=== PATIENT | male | born 1935 | race Caucasian/White ===

== ENCOUNTER 2020-07-30 08:23 | Outpatient (CLI) | payer MEDICARE, BC, SELFPAY ==
--- NOTE | 2020-07-30 08:35 | US_ITS ---
WS: [id number] RENAL ULTRASOUND HISTORY: STAGE 3 CHRONIC KIDNEY DZ COMPARISON: None available. TECHNIQUE: 2-D and color Doppler imaging of the kidney submitted. Right kidney: 10.3 cm x 3.6 cm x 3.5 cm. Normal size kidney. There is slight increased echogenicity but no hydronephrosis or mass. Left kidney: 9.9 cm x 4.5 cm x 4.9 cm. Mild increased echogenicity. No hydronephrosis or mass. Aorta: Normal. Urinary Bladder: Normal distention. US/US renal BI* [id number] IMPRESSION: Very mild increased echogenicity suggesting early medical renal disease. Otherw ise negative.
== END 2020-07-30 08:24 | disposition home or self-care (01) ==
LOC: RAD 08:28
PROVIDERS: PCP Family Medicine; Visit Provider Internal Medicine Nephrology
DX: N18.32 Chronic kidney disease, stage 3b (principal)
CPT/HCPCS: 76770

== ENCOUNTER 2020-09-20 14:47 | Outpatient (CLI) | payer MEDICARE, BC, SELFPAY ==
--- NOTE | 2020-09-20 15:06 | MR_ITS ---
WS: [id number] MRI CERVICAL SPINE NONCONTRAST HISTORY: CERVICAL SPINE PAIN COMPARISON: 11/05/2017 Technique: Multiplanar, multisequence noncontrast imaging of the cervical spine. Mild increase in the cervical lordosis. C7 anterolisthesis by 3 mm. Disc desiccation is moderate thro ughout the cervical spine. No fractures or marrow edema. Signal within the cervical cord is normal. Visualized posterior fossa is unremarkable. Craniocervical junction, C1 and C2 relationship, odontoid process and soft tissues are normal. C2-C3: Normal. C3-C4: Mild annular disc bulging and osteophytic ridging. Mild central and bilateral foraminal stenos is. C4-C5: Diffuse annular disc bulging with facet arthritis. Disc and osteophyte and facet joint arthrit is encroaching into the central canal causing severe stenosis centrally. Severe bilateral foraminal s tenosis with a larger disc osteophyte complex on the LEFT. C5-C6: Diffuse annular disc bulging and osteophytic ridging with facet arthritis. Moderate size centr al disc protrusion. Severe central and bilateral foraminal stenosis. C6-C7: Diffuse annular disc bulging with osteophytic ridging. Disc osteophyte contributing to severe bilateral foraminal stenosis and mild central stenosis. C7-T1: Mild bilateral foraminal narrowing due to disc osteophyte disease. Very mild central stenosis. Similar findings can continue into the upper thoracic spine were there is mild central and bilateral foraminal stenosis due to disc osteophyte disease. Paraspinal soft tissue are normal. MR/MR cervical spin wo con* [id number] IMPRESSION: 1. Continued mild progression of cervical stenosis and degenerative disease th roughout the cervical spine since 11/05/2017. 2. Severe central and bilateral foraminal stenosis at C4-5 due to disc and ost eophyte disease. 3. Severe central and bilateral foraminal stenosis at C5-6. 4. Severe bilateral foraminal stenosis at C6-7 with mild central stenosis. 5. Mild central and bilateral foraminal stenosis at C3-4 and C7-T1
== END 2020-09-20 14:48 | disposition home or self-care (01) ==
PROVIDERS: PCP Family Medicine; Visit Provider Family Medicine
DX: M50.30 Other cervical disc degeneration, unspecified cervical region (principal); M48.02 Spinal stenosis, cervical region; M48.03 Spinal stenosis, cervicothoracic region
CPT/HCPCS: 72141

== ENCOUNTER 2022-03-24 04:00 | Observation (INO) | payer MEDICARE, BC, SELFPAY ==
[2022-03-24] VITALS (12 sets, daily range): BP systolic 128–176; BP diastolic 66–109; PULSE 70–94; RESP 14–26; TEMP 36.5–36.9; O2SAT 92–97; BMI 25.8; BMI 27.3
--- NOTE | 2022-03-24 04:02 | XRR_ITS ---
PROCEDURE INFORMATION: Exam: XR Abdomen Exam date and time: 03/24/2022 4:10 AM Age: 87 years old Clinical indication: Constipation and nausea and vomiting; Abdominal pain; Generalized; Prior surgery; Surgery type: Lumbar fusion; Patient HX: Abd pain with constipation and n/v. TECHNIQUE: Imaging protocol: Radiologic exam of the abdomen. Views: Frontal supine view of the abdomen. 1 View. COMPARISON: CR XR hip RT 2-3V wo/w pel* [id number] 05/25/2016 2:19 PM FINDINGS: Gastrointestinal tract: There is a nonspecific bowel gas pattern with some mildly gas distended loops of bowel in the mid abdomen. Some gas and fecal material is seen in the colon. There is no pneumatosis or mass effect. There is no organomegaly. Intraperitoneal space: No definite free air on the supine view exam. Bones/joints: There are no acute osseous abnormalities noted. Postsurgical changes are seen status post L2-L3 and L4-L5 fusion with transpedicular screws, rods and disc space graft material. Some bone graft material is seen in the paraspinal regions. Post laminectomy changes are seen at the L3 and L4 levels. Moderate to severe right hip degenerative changes are seen. Soft tissues: No other radiopaque foreign body or abnormal opacity. XR/XR KUB [id number] IMPRESSION: Nonspecific bowel gas pattern, as noted above.
--- NOTE | 2022-03-24 04:13 | W.ED.ABDPA2 ---
Documented by User: Janet Hicks MD 03/27/22 18:52 HPI - Abdominal Pain General: Chief Complaint: Abdominal Pain Stated Complaint: Constipated\Had Diahrea\V Time Seen by Provider: 03/24/22 04:02 Source: patient Mode of arrival: ambulatory Limitations: no limitations History of Present Illness: 87-year-old male who states that over the last week has been having diarrhea and states that his PCP had prescribed him Lomotil which she has been taking for a few days he states he has not had a bowel movement over the last 2 days and felt like his abdomen is getting distended. He states he has now been taking MiraLAX. He states that his bowels are very finicky and he does go from diarrhea to constipation he has abdominal cramping he rates his pain a 3 out of 10 he has had some slight vomiting he states is just mucus no large amount of vomitus no stool in his vomitus no history abdominal surgeries Associated Symptoms: Reports constipation and vomiting; Denies chills, dysuria and fever(s) Review of Systems Const: Denies: fever(s), chills, body aches or change in appetite Eyes: Denies: blurry vision or eye discomfort ENMT: Denies: throat pain or dental pain Card: Denies: chest pain Resp: Denies: dyspnea GI: Reports: abdominal pain, vomiting and constipation : Denies: dysuria Musc: Denies: neck pain or back pain Skin/Breast: Denies: rash Neuro: Denies: headache(s) Psych: Denies: depression Luigi/Lymph: Denies: easy bruising All/Imm: Denies: urticaria PFSH ED PFSH: Medical History BPH (benign prostatic hyperplasia) Chronic kidney disease Coronary artery disease Diabetes mellitus GERD (gastroesophageal reflux disease) Hyperlipidemia Hypertension Surgical History History of back surgery History of hernia surgery History of open heart surgery History of total replacement of both shoulder joints History of total right knee replacement Family History Mother Diabetes Stroke Grandmother Diabetes Denies family history of Cancer Social History Smoking and tobacco status: former smoker Alcohol intake: never Household members: none Marital status: / Current occupational status: retired 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 Physical Exam Const: COMMON NORMALS: no acute distress, patient oriented x3 and healthy appearing HENMT: COMMON NORMALS: normocephalic and atraumatic HEAD & SCALP: normocephalic and atraumatic Eye: COMMON NORMALS: Equal, round and reactive pupils present and EOMs intact bilaterally PUPIL: Yes Equal, round and reactive pupils present Neck/C-Spine: COMMON NORMALS: full ROM and supple Chest: COMMONS NORMALS: normal inspection of the chest and normal palpation of entire chest wall Resp: COMMON NORMALS: normal respiratory effort, No retractions, No use of accessory muscles and clear to auscultation bilaterally AUSCULTATION: clear to auscultation bilaterally Cardio: COMMON NORMALS: regular rate, regular rhythm and No murmurs present (Cardio) RATE: regular rate RHYTHM: regular rhythm GI: COMMON NORMALS: Normal to inspection, nondistended, normoactive bowel sounds present, Soft to palpation, non-tender and no masses PALPATION: Yes Soft to palpation Extremity: COMMON NORMALS: normal to inspection and full ROM Neuro: COMMON NORMALS: patient oriented x3, moves all extremities and no focal motor deficits Psych: COMMON NORMALS: mental status grossly normal, Normal thought process present and cooperative THOUGHT PROCESS: Normal thought process present Skin: COMMON NORMALS: no rashes or lesions noted and no wounds GENERAL SKIN EXAM: no rashes or lesions noted Course Vital Signs: Vital signs: Vital Signs Temperature 97.8 F 03/25/22 15:25 Pulse Rate 77 03/25/22 15:25 Respiratory Rate 16 03/25/22 15:25 Blood Pressure 152/69 03/25/22 16:31 Pulse Oximetry 94 03/25/22 15:25 Oxygen Delivery Me thod 03/25/22 15:25 MDM - Abdominal Pain Lab Data : 03/25/22 04:08 03/25/22 15:37 Labs/Radiology: Radiology Impressions KUB X-Ray 03/24/22 04:02 IMPRESSION: Nonspecific bowel gas pattern, as noted above. Abdomen/Pelvis CT 03/24/22 04:32 IMPRESSION: 1. Fluid in the ascending and transverse colon. Moderately fluid distended cecum with maximal diameter of 6.9 cm. Moderate gas and fecal material seen in the descending colon, sigmoid colon and rectum. These are nonspecific findings that can be seen with enteritis. Some sigmoid colonic diverticula seen, without CT evidence of diverticulitis. 2. Moderately distended gallbladder with gallstones. Sonography may be performed for complete assessment. 3. Small to medium-sized hiatal hernia. 4. Other chronic changes, as noted above. Gallbladder Ultrasound 03/24/22 05:30 IMPRESSION: 1. West-bp-pwfkqcjmkf distended gallbladder with mild gallbladder sludge along with some dependent gallstones. Mild gallbladder wall thickening. No pericholecystic fluid. No sonographic Hardy sign demonstrated. Hepatobiliary scan may be performed, if there is further clinical concern. 2. No biliary ductal dilatation seen. Laboratory Results WBC 24.6 10^3/uL (4.0-10.0) H 03/24/22 04:13 RBC 4.05 10^6/uL (4.1-5.3) L 03/24/22 04:13 Hgb 13.2 g/dL (11.7-16.6) 03/24/22 04:13 Hct 36.9 % (42.0-52.0) L 03/24/22 04:13 MCV 91.1 fl (80-94) 03/24/22 04:13 MCH 32.6 pg (28.0-34.0) 03/24/22 04:13 MCHC 35.8 g/dL (30.0-36.0) 03/24/22 04:13 RDW 13.2 % (12.1-15.1) 03/24/22 04:13 Plt Count 233 10^3/cmm (130-400) 03/24/22 04:13 MPV 9.7 fL (7.4-10.4) 03/24/22 04:13 Neut % (Auto) 82.2 % 03/24/22 04:13 Lymph % (Auto) 8.0 % 03/24/22 04:13 [place] % (Auto) 7.1 % 03/24/22 04:13 Eos % (Auto) 1.4 % 03/24/22 04:13 Baso % (Auto) 0.4 % 03/24/22 04:13 Neut # (Auto) 20.22 10^3/uL (1.8-7.7) H 03/24/22 04:13 Lymph # (Auto) 2.0 10^3/uL (0.8-4.8) 03/24/22 04:13 [place] # (Auto) 1.8 10^3/uL (0.2-0.9) H 03/24/22 04:13 Eos # (Auto) 0.3 10^3/uL (0.0-0.8) 03/24/22 04:13 Baso # (Auto) 0.1 10^3/uL (0.0-0.1) 03/24/22 04:13 Nucleated RBC % (auto) 0 % 03/24/22 04:13 Nucleated RBCs # 0.0 /100WBC 03/24/22 04:13 Sodium 134 mmol/L (136-145) L 03/24/22 04:13 Potassium 3.5 mmol/L (3.5-5.1) 03/24/22 04:13 Chloride 98 mmol/L (98-107) 03/24/22 04:13 Carbon Dioxide 20 mmol/L (22-29) L 03/24/22 04:13 Anion Gap 19.5 (5-19) H 03/24/22 04:13 BUN 52 mg/dL (8-23) H 03/24/22 04:13 Creatinine 2.1 mg/dL (0.7-1.2) H 03/24/22 04:13 GFR Calculation Not Reportable 03/24/22 04:13 Glucose 207 mg/dL (65-115) H 03/24/22 04:13 Calculated Osmolality 298 mOsm/kg (285-295) H 03/24/22 04:13 Lactic Acid 1.9 mmol/L (0.5-2.2) 03/24/22 08:40 Lactate 2.3 mmol/L (0.5-2.2) H 03/24/22 04:39 Calcium 9.0 mg/dL (8.5-10.5) 03/24/22 04:13 Total Bilirubin 0.3 mg/dL (0.15-1.2) 03/24/22 04:13 AST 24 U/L (0-40) 03/24/22 04:13 ALT 24 U/L (0-41) 03/24/22 04:13 Alkaline Phosphatase 96 U/L (40-130) 03/24/22 04:13 Creatine Kinase 230 U/L (39-308) 03/24/22 09:15 Total Protein 7.3 g/dL (6.6-8.7) 03/24/22 04:13 Albumin 4.2 g/dL (3.5-5.2) 03/24/22 04:13 Globulin 3.1 g/dL (1.3-4.6) 03/24/22 04:13 Lipase 64 U/L (13-60) H 03/24/22 04:13 TSH 0.97 uIU/mL (0.27-4.20) 03/24/22 09:15 Urine Color Yellow (Yellow) 03/24/22 06:42 Urine Appearance Clear (CLEAR) 03/24/22 06:42 Urine pH 5 (5-7) 03/24/22 06:42 Ur Specific [place] 1.020 (1.005-1.030) 03/24/22 06:42 Urine Protein Neg (Negative) 03/24/22 06:42 Urine Glucose (UA) Trace (Normal) H 03/24/22 06:42 Urine Ketones Negative (Negative) 03/24/22 06:42 Urine Blood Neg (Negative) 03/24/22 06:42 Urine Nitrate Negative (Negative) 03/24/22 06:42 Urine Bilirubin Neg (Negative) 03/24/22 06:42 Urine Urobilinogen Norm mg/dL (Negative) 03/24/22 06:42 Ur Leukocyte Esterase Negative (Negative) 03/24/22 06:42 Discharge Plan Discharge Patient Disposition: Placed in Observation Admit Provider: Elver Zaman Clinical Impression: Cholelithiasis, Colitis, Diabetic peripheral neuropathy associated with type 2 diabetes mellitus, Leukocytosis Discharge Diet: Advance as tolerated Discharge Activity: Resume usual activity Sign Out Sign Out Data: Patient Sign Out occurred on 03/24/22 at 06:23. Patient's care was discussed, and care was transferred from to Ketan Pierce DO. Coding Level of Care Code ED Public Health Dentist for Chg Fwd Exam Comprehensive Documented by User: Ketan Pierce DO 03/24/22 17:55 HPI - Abdominal Pain General: Chief Complaint: Abdominal Pain Stated Complaint: Constipated\Had Diahrea\V Time Seen by Provider: 03/24/22 04:02 PFSH ED PFSH: Medical History BPH (benign prostatic hyperplasia) Chronic kidney disease Coronary artery disease Diabetes mellitus GERD (gastroesophageal reflux disease) Hyperlipidemia Hypertension Surgical History History of back surgery History of hernia surgery History of open heart surgery History of total replacement of both shoulder joints History of total right knee replacement Family History Mother Diabetes Stroke Grandmother Diabetes Denies family history of Cancer Social History Smoking and tobacco status: former smoker Alcohol intake: never Household members: none Marital status: / Current occupational status: retired 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 Patient has leukocytosis mild gallbladder wall thickening elevated lactate and creatinine. He meets qualifications for sepsis. We will get serial lactates. I did not give him fluids and holding at this point he would benefit from it he is not significantly hypotensive he is actually hypertensive and giving him a large fluid bolus with actually likely make things worse discussed Dr. Zaman also consulted general surgery. Medical Records I reviewed the patient's medical records. Lab Data I reviewed the patient's lab results. : 03/25/22 04:08 03/25/22 15:37 Labs/Radiology: Radiology Impressions KUB X-Ray 03/24/22 04:02 IMPRESSION: Nonspecific bowel gas pattern, as noted above. Abdomen/Pelvis CT 03/24/22 04:32 IMPRESSION: 1. Fluid in the ascending and transverse colon. Moderately fluid distended cecum with maximal diameter of 6.9 cm. Moderate gas and fecal material seen in the descending colon, sigmoid colon and rectum. These are nonspecific findings that can be seen with enteritis. Some sigmoid colonic diverticula seen, without CT evidence of diverticulitis. 2. Moderately distended gallbladder with gallstones. Sonography may be performed for complete assessment. 3. Small to medium-sized hiatal hernia. 4. Other chronic changes, as noted above. Gallbladder Ultrasound 03/24/22 05:30 IMPRESSION: 1. Pmvt-as-qcjaummdbb distended gallbladder with mild gallbladder sludge along with some dependent gallstones. Mild gallbladder wall thickening. No pericholecystic fluid. No sonographic Hardy sign demonstrated. Hepatobiliary scan may be performed, if there is further clinical concern. 2. No biliary ductal dilatation seen. Laboratory Results WBC 24.6 10^3/uL (4.0-10.0) H 03/24/22 04:13 RBC 4.05 10^6/uL (4.1-5.3) L 03/24/22 04:13 Hgb 13.2 g/dL (11.7-16.6) 03/24/22 04:13 Hct 36.9 % (42.0-52.0) L 03/24/22 04:13 MCV 91.1 fl (80-94) 03/24/22 04:13 MCH 32.6 pg (28.0-34.0) 03/24/22 04:13 MCHC 35.8 g/dL (30.0-36.0) 03/24/22 04:13 RDW 13.2 % (12.1-15.1) 03/24/22 04:13 Plt Count 233 10^3/cmm (130-400) 03/24/22 04:13 MPV 9.7 fL (7.4-10.4) 03/24/22 04:13 Neut % (Auto) 82.2 % 03/24/22 04:13 Lymph % (Auto) 8.0 % 03/24/22 04:13 [place] % (Auto) 7.1 % 03/24/22 04:13 Eos % (Auto) 1.4 % 03/24/22 04:13 Baso % (Auto) 0.4 % 03/24/22 04:13 Neut # (Auto) 20.22 10^3/uL (1.8-7.7) H 03/24/22 04:13 Lymph # (Auto) 2.0 10^3/uL (0.8-4.8) 03/24/22 04:13 [place] # (Auto) 1.8 10^3/uL (0.2-0.9) H 03/24/22 04:13 Eos # (Auto) 0.3 10^3/uL (0.0-0.8) 03/24/22 04:13 Baso # (Auto) 0.1 10^3/uL (0.0-0.1) 03/24/22 04:13 Nucleated RBC % (auto) 0 % 03/24/22 04:13 Nucleated RBCs # 0.0 /100WBC 03/24/22 04:13 Sodium 134 mmol/L (136-145) L 03/24/22 04:13 Potassium 3.5 mmol/L (3.5-5.1) 03/24/22 04:13 Chloride 98 mmol/L (98-107) 03/24/22 04:13 Carbon Dioxide 20 mmol/L (22-29) L 03/24/22 04:13 Anion Gap 19.5 (5-19) H 03/24/22 04:13 BUN 52 mg/dL (8-23) H 03/24/22 04:13 Creatinine 2.1 mg/dL (0.7-1.2) H 03/24/22 04:13 GFR Calculation Not Reportable 03/24/22 04:13 Glucose 207 mg/dL (65-115) H 03/24/22 04:13 Calculated Osmolality 298 mOsm/kg (285-295) H 03/24/22 04:13 Lactic Acid 1.9 mmol/L (0.5-2.2) 03/24/22 08:40 Lactate 2.3 mmol/L (0.5-2.2) H 03/24/22 04:39 Calcium 9.0 mg/dL (8.5-10.5) 03/24/22 04:13 Total Bilirubin 0.3 mg/dL (0.15-1.2) 03/24/22 04:13 AST 24 U/L (0-40) 03/24/22 04:13 ALT 24 U/L (0-41) 03/24/22 04:13 Alkaline Phosphatase 96 U/L (40-130) 03/24/22 04:13 Creatine Kinase 230 U/L (39-308) 03/24/22 09:15 Total Protein 7.3 g/dL (6.6-8.7) 03/24/22 04:13 Albumin 4.2 g/dL (3.5-5.2) 03/24/22 04:13 Globulin 3.1 g/dL (1.3-4.6) 03/24/22 04:13 Lipase 64 U/L (13-60) H 03/24/22 04:13 TSH 0.97 uIU/mL (0.27-4.20) 03/24/22 09:15 Urine Color Yellow (Yellow) 03/24/22 06:42 Urine Appearance Clear (CLEAR) 03/24/22 06:42 Urine pH 5 (5-7) 03/24/22 06:42 Ur Specific [place] 1.020 (1.005-1.030) 03/24/22 06:42 Urine Protein Neg (Negative) 03/24/22 06:42 Urine Glucose (UA) Trace (Normal) H 03/24/22 06:42 Urine Ketones Negative (Negative) 03/24/22 06:42 Urine Blood Neg (Negative) 03/24/22 06:42 Urine Nitrate Negative (Negative) 03/24/22 06:42 Urine Bilirubin Neg (Negative) 03/24/22 06:42 Urine Urobilinogen Norm mg/dL (Negative) 03/24/22 06:42 Ur Leukocyte Esterase Negative (Negative) 03/24/22 06:42 Discharge Plan Discharge Patient Disposition: Placed in Observation Admit Provider: Elver Zaman Clinical Impression: Cholelithiasis, Colitis, Diabetic peripheral neuropathy associated with type 2 diabetes mellitus, Leukocytosis Discharge Diet: Advance as tolerated Discharge Activity: Resume usual activity Sign Out Sign Out Data: Patient Sign Out occurred on 03/24/22 at 06:23. Patient's care was discussed, and care was transferred from to Ketan Pierce DO. Coding Level of Care Code ED Public Health Dentist for Chg Fwd Exam Comprehensive
[2022-03-24 04:20] LABS: Basophils # 0.1 10^3/uL (0.0-0.1); Basophils % 0.4 %; Eosinophils # 0.3 10^3/uL (0.0-0.8); Eosinophils % 1.4 %; Hematocrit 36.9 % (42.0-52.0); Hemoglobin 13.2 g/dL (11.7-16.6); Mean Corpuscular HGB Conc 35.8 g/dL (30.0-36.0); Mean Corpuscular Hemoglobin 32.6 pg (28.0-34.0); Mean Corpuscular Volume 91.1 fl (80-94); Mean Platelet Volume 9.7 fL (7.4-10.4); Monocytes # 1.8 10^3/uL (0.2-0.9); Monocytes % 7.1 %; Neutrophils # 20.22 10^3/uL (1.8-7.7); Neutrophils % 82.2 %; Nucleated Red Blood Cells % 0 %; Platelet Count 233 10^3/cmm (130-400); Red Blood Count 4.05 10^6/uL (4.1-5.3); Red Cell Distribution Width 13.2 % (12.1-15.1); White Blood Count 24.6 10^3/uL (4.0-10.0)
[2022-03-24] MEDS: ondansetron 2 mg/ML SDV 2 mL 4 MG IVP (04:32)
--- NOTE | 2022-03-24 04:32 | CTR_ITS ---
PROCEDURE INFORMATION: Exam: CT Abdomen And Pelvis Without Contrast Exam date and time: 03/24/2022 4:49 AM Age: 87 years old Clinical indication: Constipation and nausea and vomiting; Abdominal pain; Generalized; Prior surgery; Surgery type: Open heart. Lumbar fusion; Patient HX: Abd pain with constipation and n/v TECHNIQUE: Imaging protocol: Computed tomography of the abdomen and pelvis without contrast. Radiation optimization: All CT scans at this facility use at least one of these dose optimization techniques: automated exposure control; mA and/or kV adjustment per patient size (includes targeted exams where dose is matched to clinical indication); or iterative reconstruction. COMPARISON: CR (ABDOMEN, ) 03/24/2022 4:10 AM RADIATION DOSE METRICS: Total DLP (mGy-cm): 873.57 FINDINGS: Lungs: Minimal dependent atelectasis is seen. Moderate coronary arterial atherosclerotic vascular calcifications are seen. The heart size is at the upper limit of normal. Liver: The non-contrast enhanced liver appears unremarkable. Gallbladder and bile ducts: Moderately distended gallbladder is seen with multiple 3-4 mm calcified gallstones. No gallbladder wall thickening. No biliary ductal dilatation. Pancreas: The non-contrast enhanced pancreas appears grossly unremarkable. No ductal dilation. Spleen: The non-contrast enhanced spleen appears unremarkable. No splenomegaly. Some punctate calcified granulomas are seen. Adrenal glands: Unremarkable non-contrast CT appearance of the adrenals. No definte masses. Kidneys and ureters: No contour deforming masses seen on the non-contrast CT. No calcifications. No hydronephrosis or ureterectasis. Stomach and bowel: The noncontrast opacified stomach appears unremarkable. Small to medium-sized hiatal hernia is seen. The noncontrast opacified small bowel loops appear unremarkable. The noncontrast opacified colon shows moderate fluid in the ascending and transverse colon. Moderately fluid distended cecum is seen with maximal diameter of 6.9 cm. Moderate gas and fecal material is seen in the descending colon, sigmoid colon and rectum. Some sigmoid colonic diverticula are seen, without CT evidence of diverticulitis. Tortuous, redundant sigmoid colon is seen. The lack of orally administered contrast material limits assessment. Appendix: No CT evidence of appendicitis. Intraperitoneal space: No abdominal ascites. No free air. Some benign phleboliths seen in the pelvis. Vasculature: No abdominal aortic aneurysm. Lymph nodes: No enlarged lymph nodes. Urinary bladder: No bladder debris. No wall thickening. Reproductive: Unremarkable as visualized. Bones/joints: Postsurgical changes of the lumbar spine are seen status post L2-L5 fusion with transpedicular screws and posterior rods. Post laminectomy changes are seen from L2-L4. Bone graft material is seen in the posterior element regions. There is associated artifact. Severe right and moderate left hip degenerative changes are seen. No acute fractures seen. Soft tissues: Unremarkable. CT/CT abdomen pelvis wo con [id number] IMPRESSION: 1. Fluid in the ascending and transverse colon. Moderately fluid distended cecum with maximal diameter of 6.9 cm. Moderate gas and fecal material seen in the descending colon, sigmoid colon and rectum. These are nonspecific findings that can be seen with enteritis. Some sigmoid colonic diverticula seen, without CT evidence of diverticulitis. 2. Moderately distended gallbladder with gallstones. Sonography may be performed for complete assessment. 3. Small to medium-sized hiatal hernia. 4. Other chronic changes, as noted above.
[2022-03-24 04:40] LABS: Alanine Aminotransferase 24 U/L (0-41); Albumin Level 4.2 g/dL (3.5-5.2); Alkaline Phosphatase 96 U/L (40-130); Anion Gap 19.5 (5-19); Aspartate Amino Transferase 24 U/L (0-40); Blood Urea Nitrogen 52 mg/dL (8-23); Carbon Dioxide 20 mmol/L (22-29); Chloride 98 mmol/L (98-107); Globulin 3.1 g/dL (1.3-4.6); Glucose 207 mg/dL (65-115); Lipase 64 U/L (13-60); Osmolality Calculated 298 mOsm/kg (285-295); Potassium 3.5 mmol/L (3.5-5.1); Sodium 134 mmol/L (136-145); Total Bilirubin 0.3 mg/dL (0.15-1.2); Total Protein 7.3 g/dL (6.6-8.7)
[2022-03-24 05:09] LABS: Lactate (Lactic Acid level) 2.3 mmol/L (0.5-2.2)
[2022-03-24] MEDS: sodium chloride 0.9% 1,000 ML 999 ML IV (05:19)
--- NOTE | 2022-03-24 05:30 | USR_ITS ---
PROCEDURE INFORMATION: Exam: US Abdomen, Limited; Right Upper Quadrant Exam date and time: 03/24/2022 5:46 AM Age: 87 years old Clinical indication: Abdominal pain; Acute; Additional info: Abd pain TECHNIQUE: Imaging protocol: Real time ultrasound of the abdomen with image documentation. Limited exam focused on the right upper quadrant. COMPARISON: CT abdomen pelvis wo con [id number] 03/24/2022 4:49 AM FINDINGS: Liver: The demonstrated liver shows normal contour with normal parenchymal echo texture. The liver size appears normal on ultrasound. Main portal vein shows flow. Gallbladder: Uyge-pt-dfetuwquxh distended gallbladder is seen. There is mild gallbladder sludge along with some dependent shadowing gallstones. There is mild gallbladder wall thickening. No pericholecystic fluid. No sonographic Hardy sign demonstrated. Hepatobiliary scan may be performed, if there is further clinical concern. Biliary ducts: The intrahepatic and extrahepatic bile ducts are not dilated with the common bile duct measuring 0.32 cm. The distal common bile duct is not well seen. Pancreas: Not well seen, related to bowel gas in the abdomen. Right kidney: The right kidney measures 11.2 x 5.2 x 4.1 cm. There is normal renal contour and morphology, with normal parenchymal echotexture. There is no hydronephrosis. Aorta: Visualized portions appear unremarkable. Inferior vena cava: Visualized portions appear unremarkable. Intraperitoneal space: There is no right abdominal ascites. US/US gall bladder [id number] IMPRESSION: 1. Vpqz-hs-xihsahzndg distended gallbladder with mild gallbladder sludge along with some dependent gallstones. Mild gallbladder wall thickening. No pericholecystic fluid. No sonographic Hardy sign demonstrated. Hepatobiliary scan may be performed, if there is further clinical concern. 2. No biliary ductal dilatation seen.
[2022-03-24 06:48] LABS: Add Urine Microscopic? NO; Charge for UA Resulting for Rev
[2022-03-24 06:53] LABS: Bilirubin Urine Neg (Negative); Blood Urine Neg (Negative); Glucose Urine UA Trace (Normal); Ketones Urine Negative (Negative); Leukocyte Esterase Urine Negative (Negative); Nitrate Urine Negative (Negative); Protein Urine Neg (Negative); Urine Appearance Clear (CLEAR); Urine Color Yellow (Yellow); Urobilinogen Urine Norm (Negative); pH Urine 5 (5-7)
[2022-03-24] MEDS: piperacillin-tazobactam 3.375 GM in sodium chloride 0.9% (plus) 50 ML IV ×3 (08:43→22:36)
--- NOTE | 2022-03-24 08:47 | P.HP_ITS ---
Providers/Chief Complaint Admitting Physician: Elver Zaman MD Primary Care Provider: Autumn Mortensen MD Chief Complaint: Constipated\Had Diahrea\V History of Present Illness Wade Abreu is a 87 year old male presenting to the emergency department with complaints of nausea, vomiting, and difficulty having a bowel movement. He reports this all started 1 week ago when his chronic diarrhea seemed to worsen. He was having lots of watery stools. He went in to see his primary care provider and had some stool studies done and was prescribed some Lomotil. He had taken some Lomotil and the last 2 days really had not been able to have a bowel movement and had more bloating, some chills, some nausea and vomiting. He had no blood in his stool, emesis. He reports he feels a little bit better in the ER now as he has finally had a bowel movement. He reports the first 1 was kind formed but the second more liquid. Stool studies at primary care provider's office were negative for C. difficile, culture was negative, and O&P was negative. He still has a little bit of discomfort, generalized around his umbilicus. In the emergency department he had stool studies ordered, got a dose of Zosyn, received IV fluids, and I have ordered blood cultures. Review of Systems General: Reports: 10 or more systems reviewed and unremarkable except in HPI and below Const: Reports: chills; Denies: fever(s) Eyes: Denies: change in vision ENMT: Denies: throat pain Card: Denies: chest pain Resp: Denies: dyspnea GI: Reports: abdominal pain, nausea and vomiting; Denies: hematochezia or melena : Reports: difficulty urinating Musc: Denies: neck pain Skin/Breast: Denies: rash Neuro: Denies: headache(s) Psych: Denies: anxiety or depression Endo: Denies: polyuria Luigi/Lymph: Denies: easy bruising All/Imm: Denies: urticaria Medications/Allergies Home Medications Medication Instructions Recorded Confirmed Last Taken Type My Sleep 1 tab PO BEDTIME 03/24/22 03/24/22 Unknown History acetaminophen 325 mg capsule 650 mg PO BID 03/24/22 03/24/22 Unknown History (Tylenol) albuterol sulfate 90 mcg/actuation 2 puff inhalation Q4H PRN 03/24/22 03/24/22 Unknown History aerosol inhaler Shortness Of Breath Or Wheezing amlodipine 10 mg tablet 10 mg PO DAILY 03/24/22 03/24/22 Unknown History aspirin 81 mg tablet,delayed 81 mg PO DAILY 03/24/22 03/24/22 Unknown History release atorvastatin 40 mg tablet 40 mg PO BEDTIME 03/24/22 03/24/22 Unknown History cholestyramine (with sugar) 4 gram 1 ea PO DAILY 03/24/22 03/24/22 Unknown History powder for susp in a packet clonidine HCl 0.2 mg tablet 0.2 mg PO BID 03/24/22 03/24/22 Unknown History diphenoxylate-atropine 2.5 1 tab PO QID PRN Diarrhea 03/24/22 03/24/22 Unknown History mg-0.025 mg tablet finasteride 5 mg tablet 5 mg PO DAILY 03/24/22 03/24/22 Unknown History folic acid-vit B6-vit B12 2.5 1 tab PO DAILY 03/24/22 03/24/22 Unknown History mg-25 mg-2 mg tablet (Niva-Fol) glimepiride 4 mg tablet 4 mg PO DAILY 03/24/22 03/24/22 Unknown History hydrochlorothiazide 25 mg tablet 25 mg PO DAILY 03/24/22 03/24/22 Unknown History insulin glargine 100 unit/mL 40 unit SUBCUT DAILY 03/24/22 03/24/22 Unknown History subcutaneous solution (Lantus U-100 Insulin) lisinopril 40 mg tablet 40 mg PO DAILY 03/24/22 03/24/22 Unknown History metoprolol succinate 50 mg 75 mg PO DAILY 03/24/22 03/24/22 Unknown History tablet,extended release 24 hr mmlvmyvagdyh-jrd-vddwa acid-vit 1 tab PO DAILY 03/24/22 03/24/22 Unknown History K-lycop 400 mcg-20 mcg-370 mcg tablet (Men's 50 Plus Multivitamin) omeprazole 20 mg capsule,delayed 20 mg PO DAILY 03/24/22 03/24/22 Unknown Histor y release ondansetron 4 mg disintegrating 4 mg PO TID PRN Nausea And Vomiting 03/24/22 03/24/22 Unknown History tablet promethazine-DM 6.25 mg-15 mg/5 mL 10 ml PO Q6H PRN Cough 03/24/22 03/24/22 Unknown History oral syrup tamsulosin 0.4 mg capsule 0.4 mg PO BID 03/24/22 03/24/22 Unknown History trazodone 150 mg tablet 225 mg PO BEDTIME PRN Sleep 03/24/22 03/24/22 Unknown History Allergies Allergy/AdvReac Type Severity Reaction Status Date / Time No Known Allergies Allergy Verified 03/24/22 07:42 PFSH Acute PFSH: Medical History (Updated 03/24/22 @ 09:07 by Elver Zaman MD) BPH (benign prostatic hyperplasia) Chronic kidney disease Coronary artery disease Diabetes mellitus GERD (gastroesophageal reflux disease) Hyperlipidemia Hypertension Surgical History (Updated 03/24/22 @ 08:54 by Elver Zaman MD) History of back surgery History of hernia surgery History of open heart surgery History of total replacement of both shoulder joints History of total right knee replacement Family History Mother Diabetes Stroke Grandmother Diabetes Denies family history of Cancer Social History (Updated 03/24/22 @ 08:55 by Elver Zaman MD) Smoking and tobacco status: former smoker Alcohol intake: never Household members: none Marital status: / Current occupational status: retired 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 Pupils equally round. Oropharynx clear. Neck is supple no lymphadenopathy or thyromegaly Cardiovascular regular rate and rhythm with a 2/6 systolic murmur Lungs clear no wheezing or crackles Abdomen is soft. Slight generalized tenderness. Positive bowel sounds. No rebound. exam is deferred Extremities no cyanosis or clubbing. Trace to 1+ edema bilaterally. Skin no rash, cap refill brisk Neuro no focal deficits Data : 03/24/22 04:13 03/24/22 04:13 Other Labs: Lactate elevated at 2.3 Calcium 9.0 LFTs normal Lipase 64 Urinalysis trace glucose otherwise negative I have ordered blood cultures Gallbladder ultrasound mild to moderately distended gallbladder with sludge with some dependent gallstones and mild thickening. Negative Hardy's and negative for pericholecystic fluid. No duct dilation CT abdomen pelvis fluid in the ascending and transverse colon with fluid distention of the cecum measuring 6.9 cm with moderate gas and fecal material. Small to medium hiatal hernia and gallbladder distended with stones A&P Assessment and plan (1) Colitis: There is evidence of colon distention, perhaps colitis on CT scan. White blood cell count is significantly elevated, and he reports some chills at home. Prior to 2 days ago he was having loose stools. He is now feeling better after having a bowel movement. Will place on observation, initiate Zosyn, check blood cultures. I do not believe he has sepsis at this time on my evaluation. Heart rate is less than 90, blood pressure adequate, no fever. Stool studies pending here. They were checked as an outpatient on the and C. difficile, stool culture, and O&P were negative. (2) Cholelithiasis: He does not have any focal right upper quadrant pains to suggest cholecystitis at this time Surgery consult to be obtained for further evaluation/opinion (3) Leukocytosis: See above (4) Acute kidney injury: Patient with evidence of acute kidney injury superimposed on chronic kidney disease. Last creatinine as an outpatient was 1.6 at primary care provider's office. Check bladder scan to make sure he is not retaining urine. Urinalysis was benign Initiate fluids Recheck creatinine tomorrow Likely secondary to dehydration Check CK Plan Multiple other medical problems as outlined in past medical history Allow natural . Discussion with patient and grandson Heparin for DVT prophylaxis Attestations Medical Necessity Statement*: Will require less than 2 midnight stay for evaluation and treatment of colitis, acute kidney injury Coding Level of Care Code Acute Water Vessel Captain for [facility] Ell[facility] Diagnoses Colitis K52.9 Cholelithiasis K80.20 Leukocytosis D72.829 Acute kidney injury N17.9
[2022-03-24 09:03] LABS: Lactic Sepsis W/Reflex 1.9 mmol/L (0.5-2.2)
[2022-03-24 09:54] LABS: Creatine Phosphokinase 230 U/L (39-308)
[2022-03-24 10:03] LABS: Thyroid Stimulating Hormone 0.97 uIU/mL (0.27-4.20)
[2022-03-24 11:14] LABS: Glucose Point of Care 183 mg/dL (70-110)
[2022-03-24] MEDS: finasteride 5 mg Tablet PO (11:22)
[2022-03-24] MEDS: metoprolol succinate ER (24 HR) 50 mg Tablet 75 MG PO (11:22)
[2022-03-24] MEDS: amlodipine 10 mg Tablet PO (11:22)
[2022-03-24] MEDS: tamsulosin 0.4 mg Capsule PO ×2 (11:22→17:20)
[2022-03-24] MEDS: aspirin 81 mg EC Tablet PO (11:23)
[2022-03-24] MEDS: heparin 5,000 unit/mL INJ 1 mL 5000 UNIT SUBCUT ×2 (11:23→22:36)
[2022-03-24] MEDS: pantoprazole DR 40 mg Tablet PO (11:23)
[2022-03-24] MEDS: sodium chloride 0.9% 1,000 ML 75 ML IV (11:28)
[2022-03-24] MEDS: insulin lispro 100 unit/1 mL SUBCUT (13:38)
[2022-03-24] MEDS: insulin glargine 100 units/1 mL 40 UNIT SUBCUT (14:00)
--- NOTE | 2022-03-24 16:34 | PM.CONSULT ---
Providers/Reason For Consult Consulting Physician/Specialty*: Jose Garcia MD Reason for Consult*: Leukocytosis Requesting Physician: Dr. Rendon Attending Physician: Elver Zaman MD Primary Care Provider: Autumn Mortensen MD History of Present Illness History of Present Illness Mr. Wade Abreu is a 87 year old male resents to the emergency department with history of nausea and vomiting and having trouble with bowel movements. Apparently the patient had previous diarrhea for a week or so and was placed on Lomotil that seemed to help but got the patient backed up. In the interim stool studies were done by the patient's primary care provider and showed negative results for C. difficile. Patient presented to the ER and was found to have leukocytosis of 25,000 and a lactic acid of 2.3. Likely due to dehydration. CT of the abdomen pelvis was done and showed 1. Fluid in the ascending and transverse colon. Moderately fluid distended cecum with maximal diameter of 6.9 cm. Moderate gas and fecal material seen in the descending colon, sigmoid colon and rectum. These are nonspecific findings that can be seen with enteritis. Some sigmoid colonic diverticula seen, without CT evidence of diverticulitis. 2. Moderately distended gallbladder with gallstones. Sonography may be performed for complete assessment. 3. Small to medium-sized hiatal hernia. Also a gallbladder ultrasound was done and showed; 1. Ojji-fo-dmuuntlmui distended gallbladder with mild gallbladder sludge along with some dependent gallstones. Mild gallbladder wall thickening. No pericholecystic fluid. No sonographic Hardy sign demonstrated. Hepatobiliary scan may be performed, if there is further clinical concern. 2. No biliary ductal dilatation seen. ? I believe there was a concern about the gallbladder could be a contributing factor in patient's overall picture of potential sepsis and subsequently general surgery was consulted for further evaluation. Patient reports to me about a week ago when I asked him he had steak sandwich at [employer] and he started feeling little bit sick afterwards but is not sure if it is related to the sandwich or was not as he is used to eat outside a lot especially after his had 9 years ago. Reports no fatty dyspepsia and he eats [place] fries and fried chicken without any issues. Review of Systems General: Reports: 10 or more systems reviewed and unremarkable except in HPI and below Medications/Allergies Home Medications Medication Instructions Recorded Confirmed Last Taken Type My Sleep 1 tab PO BEDTIME 03/24/22 03/24/22 Unknown History acetaminophen 325 mg capsule 650 mg PO BID 03/24/22 03/24/22 Unknown History (Tylenol) albuterol sulfate 90 mcg/actuation 2 puff inhalation Q4H PRN 03/24/22 03/24/22 Unknown History aerosol inhaler Shortness Of Breath Or Wheezing amlodipine 10 mg tablet 10 mg PO DAILY 03/24/22 03/24/22 Unknown History aspirin 81 mg tablet,delayed 81 mg PO DAILY 03/24/22 03/24/22 Unknown History release atorvastatin 40 mg tablet 40 mg PO BEDTIME 03/24/22 03/24/22 Unknown History cholestyramine (with sugar) 4 gram 1 ea PO DAILY 03/24/22 03/24/22 Unknown History powder for susp in a packet clonidine HCl 0.2 mg tablet 0.2 mg PO BID 03/24/22 03/24/22 Unknown History diphenoxylate-atropine 2.5 1 tab PO QID PRN Diarrhea 03/24/22 03/24/22 Unknown History mg-0.025 mg tablet finasteride 5 mg tablet 5 mg PO DAILY 03/24/22 03/24/22 Unknown History folic acid-vit B6-vit B12 2.5 1 tab PO DAILY 03/24/22 03/24/22 Unknown History mg-25 mg-2 mg tablet (Niva-Fol) glimepiride 4 mg tablet 4 mg PO DAILY 03/24/22 03/24/22 Unknown History hydrochlorothiazide 25 mg tablet 25 mg PO DAILY 03/24/22 03/24/22 Unknown History insulin glargine 100 unit/mL 40 unit SUBCUT DAILY 03/24/22 03/24/22 Unknown History subcutaneous solution (Lantus U-100 Insulin) lisinopril 40 mg tablet 40 mg PO DAILY 03/24/22 03/24/22 Unknown History metoprolol succinate 50 mg 75 mg PO DAILY 03/24/22 03/24/22 Unknown History tablet,extended release 24 hr fffjkvaxbmbi-lhe-cubdw acid-vit 1 tab PO DAILY 03/24/22 03/24/22 Unknown History K-lycop 400 mcg-20 mcg-370 mcg tablet (Men's 50 Plus Multivitamin) omeprazole 20 mg capsule,delayed 20 mg PO DAILY 03/24/22 03/24/22 Unknown History release ondansetron 4 mg disintegrating 4 mg PO TID PRN Nausea And Vomiting 03/24/22 03/24/22 Unknown History tablet promethazine-DM 6.25 mg-15 mg/5 mL 10 ml PO Q6H PRN Cough 03/24/22 03/24/22 Unknown History oral syrup tamsulosin 0.4 mg capsule 0.4 mg PO BID 03/24/22 03/24/22 Unknown History trazodone 150 mg tablet 225 mg PO BEDTIME PRN Sleep 03/24/22 03/24/22 Unknown History Allergies Allergy/AdvReac Type Severity Reaction Status Date / Time No Known Allergies Allergy Verified 03/24/22 16:39 Current Medications Generic Name Dose Route Start Last Admin Trade Name Freq PRN Reason Stop Dose Admin Amlodipine Besylate 10 mg 03/24/22 10:31 03/24/22 11:22 Amlodipine 10 Mg Tablet PO 10 mg DAILY MYKE Administration Aspirin 81 mg 03/24/22 10:31 03/24/22 11:23 Aspirin 81 Mg Ec Tablet PO 81 mg DAILY MYKE Administration Finasteride 5 mg 03/24/22 10:31 03/24/22 11:22 Finasteride 5 Mg Tablet PO 5 mg DAILY MYKE Administration Heparin Sodium (Porcine) 5,000 unit 03/24/22 10:31 03/24/22 11:23 Heparin 5,000 Unit/Ml Inj 1 Ml SUBCUT 5,000 unit Q12H MYKE Administration Sodium Chloride 1,000 mls @ 75 mls/hr 03/24/22 10:31 03/24/22 11:28 Sodium Chloride 0.9% IV 75 mls/hr .[id number] MYKE Administration Piperacillin Sod/Tazobactam 50 mls @ 12.5 mls/hr 03/24/22 15:00 03/24/22 15:50 Sod 3.375 gm/ Sodium Chloride IV 12.5 mls/hr Q8H MYKE Administration Insulin Glargine 40 unit 03/24/22 14:00 03/24/22 14:00 Insulin Glargine 100 Units/1 Ml SUBCUT 40 unit DAILY MYKE Administration Insulin Human Lispro 0 unit 03/24/22 12:00 03/24/22 13:38 Insulin Lispro 100 Unit/1 Ml SUBCUT 4 unit WM&BEDTIME MYKE Administration Protocol Metoprolol Succinate 75 mg 03/24/22 10:31 03/24/22 11:22 Metoprolol Succinate Er (24 Hr) 50 Mg Tablet PO 75 mg DAILY MYKE Administration Pantoprazole Sodium 40 mg 03/24/22 11:00 03/24/22 11:[address] 40 Mg Tablet PO 40 mg DAILY MYKE Administration Tamsulosin HCl 0.4 mg 03/24/22 10:31 03/24/22 11:22 Tamsulosin 0.4 Mg Capsule PO 0.4 mg BID MYKE Administration PFSH Acute PFSH: Medical History BPH (benign prostatic hyperplasia) Chronic kidney disease Coronary artery disease Diabetes mellitus GERD (gastroesophageal reflux disease) Hyperlipidemia Hypertension Surgical History History of back surgery History of hernia surgery History of open heart surgery History of total replacement of both shoulder joints History of total right knee replacement Family History Mother Diabetes Stroke Grandmother Diabetes Denies family history of Cancer Social History Smoking and tobacco status: former smoker Alcohol intake: never Household members: none Marital status: / Current occupational status: retired 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 Vitals/I&O/Wt Last Vital Signs Temp 98.3 F 03/24/22 16:00 Pulse 81 03/24/22 16:00 Resp 18 03/24/22 16:00 BP 152/66 03/24/22 16:00 Pulse Ox 95 03/24/22 16:00 O2 Del Method 03/24/22 16:00 03/24/22 03/24/22 03/24/22 06:59 14:59 22:59 Intake Total 1050 / 1050 Output Total 250 / 250 Balance 800 / 800 Weight last 48 hrs Weight 180 lb Weight 170 lb Physical Exam Narrative: Patient is conscious alert oriented X3 No apparent distress BMI 27.4 Head and neck examination PERRLA no masses no cervical lymphadenopathy no jaundice Cardiac examination audible S1-S2 no murmurs no gallops no arrhythmias Chest is clear bilateral,abscence of Rhonchi or wheezes,no surgical emphysema Abdomen nontender at the moment nondistended soft no organomegaly guarding or rigidity/no signs of peritonitis Extremities no cyanosis no clubbing no edema Data : 03/24/22 04:13 03/24/22 04:13 Micro: Microbiology 03/24/22 05:46 Enteric Pathogens (PCR) - Final Stool - Stool Aspirate C.difficile Toxin B Gene (PCR) - Final 03/24/22 10:12 Blood Culture - Preliminary Blood SPECIMEN COLLECTED 03/24/22 09:15 Blood Culture - Preliminary Blood SPECIMEN COLLECTED A&P Assessment and plan (1) Gallbladder sludge: Based on history taking physical examination and reviewing the chart and images with my present repetition. Likely the patient developed enterocolitis due to food poisoning. Overall he is responding to IV fluid resuscitation and conservative measures. I do not see an acute indication for gallbladder surgery at the moment Perhaps a HIDA scan as an outpatient with follow-up in surgery office would be appropriate Assurance and education All questions have been answered and all concerns have been addressed to patient's satisfaction. Consult Attestations Medical Necessity Statement: Per admitting service Coding Level of Care Code Acute Leather Production Worker for [facility] Diagnoses Gallbladder sludge K82.8
[2022-03-24 16:48] LABS: Glucose Point of Care 111 mg/dL (70-110)
[2022-03-24] MEDS: cloNIDine 0.1 mg Tablet 0.2 MG PO (17:20)
[2022-03-24] MEDS: atorvastatin 40 mg Tablet PO (20:16)
[2022-03-24 20:20] LABS: Glucose Point of Care 113 mg/dL (70-110)
[2022-03-25] VITALS (8 sets, daily range): BP systolic 115–165; BP diastolic 60–70; PULSE 70–77; RESP 15–16; TEMP 36.6–37.3; O2SAT 92–95
[2022-03-25] MEDS: sodium chloride 0.9% 1,000 ML 75 ML IV (04:20)
[2022-03-25 04:26] LABS: Basophils % 0.4 %; Eosinophils # 0.1 10^3/uL (0.0-0.8); Eosinophils % 1.1 %; Hematocrit 29.6 % (42.0-52.0); Hemoglobin 10.6 g/dL (11.7-16.6); Lymphocytes # 1.7 10^3/uL (0.8-4.8); Lymphocytes % 14.9 %; Mean Corpuscular HGB Conc 35.8 g/dL (30.0-36.0); Mean Corpuscular Hemoglobin 32.9 pg (28.0-34.0); Mean Corpuscular Volume 91.9 fl (80-94); Mean Platelet Volume 10.4 fL (7.4-10.4); Monocytes # 0.8 10^3/uL (0.2-0.9); Monocytes % 7.4 %; Neutrophils % 75.6 %; Nucleated Red Blood Cells % 0 %; Platelet Count 175 10^3/cmm (130-400); Red Blood Count 3.22 10^6/uL (4.1-5.3); Red Cell Distribution Width 13.5 % (12.1-15.1); White Blood Count 11.4 10^3/uL (4.0-10.0)
[2022-03-25 04:48] LABS: Alanine Aminotransferase 20 U/L (0-41); Albumin Level 3.2 g/dL (3.5-5.2); Alkaline Phosphatase 69 U/L (40-130); Anion Gap 13.4 (5-19); Aspartate Amino Transferase 23 U/L (0-40); Blood Urea Nitrogen 35 mg/dL (8-23); Calcium 8.1 mg/dL (8.5-10.5); Carbon Dioxide 22 mmol/L (22-29); Chloride 107 mmol/L (98-107); Globulin 2.5 g/dL (1.3-4.6); Glucose 119 mg/dL (65-115); Osmolality Calculated 297 mOsm/kg (285-295); Potassium 3.4 mmol/L (3.5-5.1); Sodium 139 mmol/L (136-145); Total Bilirubin 0.4 mg/dL (0.15-1.2); Total Protein 5.7 g/dL (6.6-8.7)
[2022-03-25 06:17] LABS: Glucose Point of Care 108 mg/dL (70-110)
[2022-03-25] MEDS: piperacillin-tazobactam 3.375 GM in sodium chloride 0.9% (plus) 50 ML IV ×2 (06:22→15:11)
[2022-03-25] MEDS: tamsulosin 0.4 mg Capsule PO ×2 (08:35→16:22)
[2022-03-25] MEDS: cloNIDine 0.1 mg Tablet 0.2 MG PO ×2 (08:35→16:22)
[2022-03-25] MEDS: pantoprazole DR 40 mg Tablet PO (08:35)
[2022-03-25] MEDS: aspirin 81 mg EC Tablet PO (08:35)
[2022-03-25] MEDS: metoprolol succinate ER (24 HR) 50 mg Tablet 75 MG PO (08:35)
[2022-03-25] MEDS: finasteride 5 mg Tablet PO (08:35)
[2022-03-25] MEDS: insulin glargine 100 units/1 mL 40 UNIT SUBCUT (08:36)
[2022-03-25] MEDS: amlodipine 10 mg Tablet PO (08:36)
[2022-03-25] MEDS: potassium chloride ER 20 mEq Tablet 40 MEQ PO (08:38)
[2022-03-25 11:03] LABS: Glucose Point of Care 163 mg/dL (70-110)
[2022-03-25] MEDS: insulin lispro 100 unit/1 mL SUBCUT (11:12)
[2022-03-25] MEDS: heparin 5,000 unit/mL INJ 1 mL 5000 UNIT SUBCUT (11:13)
--- NOTE | 2022-03-25 13:12 | PM.DCS ---
Discharge Providers Date of Admission: 03/24/22 09:37 Date of Discharge: March 25, 2022 Attending Provider at Admission: Elver Zaman MD Attending Provider at Discharge: Tila Feliciano MD Primary Care Provider: Autumn Mortensen MD Diagnoses at Discharge Discharge Diagnosis (1) Gallbladder sludge: Status: Acute Reason for Visit Reason for Visit: Constipated\Had Diahrea\V Brief History: As per Dr. Zaman Wade Abreu is a 87 year old male presenting to the emergency department with complaints of nausea, vomiting, and difficulty having a bowel movement.? He reports this all started 1 week ago when his chronic diarrhea seemed to worsen.? He was having lots of watery stools.? He went in to see his primary care provider and had some stool studies done and was prescribed some Lomotil.? He had taken some Lomotil and the last 2 days really had not been able to have a bowel movement and had more bloating, some chills, some nausea and vomiting.? He had no blood in his stool, emesis.? He reports he feels a little bit better in the ER now as he has finally had a bowel movement.? He reports the first 1 was kind formed but the second more liquid.? Stool studies at primary care provider's office were negative for C. difficile, culture was negative, and O&P was negative.? He still has a little bit of discomfort, generalized around his umbilicus. In the emergency department he had stool studies ordered, got a dose of Zosyn, received IV fluids, and I have ordered blood cultures. Hospital Course Hospital Course Patient admitted for possible colitis. WBC count 25,000 on admission. Most likely secondary to dehydration. He was having loose stools before coming to the hospital and had some chills at home. Cholelithiasis also present. General surgery was consulted. Patient also had an RAMOS. Baseline creatinine seems to be 1.6 that was recently checked at her primary care doctor's office. Bladder scan checked. Patient not retaining urine. Urinalysis benign. Patient given IV fluids during hospital stay. WBC count came down to 11,000. Also placed on IV Zosyn. He was evaluated by general surgery. Patient recommended to follow-up as an outpatient for potential cholecystectomy when indicated however at this time recommended no surgical intervention. Patient has improved conservatively to fluid resuscitation. I will plan on sending him home with 7 days of ciprofloxacin and Flagyl after discussion with general surgery. He is to recheck BMP in a few days to ensure complete resolution of RAMOS. He is to follow-up with his primary care doctor. Patient in agreement and requesting to go home. Will be discharged home in stable condition today. Repeat bmp shows cr 1.8 today closer to his baseline of 1.6. Physical Exam Narrative: Patient is conscious alert oriented X3 No apparent distress Heent: NC/AT EOMI Cardiac: Normal S1, S2 Chest: CTA b/l, no w/r/c Abdomen: nontender,nondistended soft, no guarding, obese rounded abdomen Extremities no cyanosis no clubbing no edema Discharge Data Studies Completed and Pending Completed Studies During Hospitalization Category Date Time Status CT abdomen pelvis wo con [id number] Stat Cat Scan 03/24/22 04:32 Completed XR KUB [id number] Stat Exams 03/24/22 04:02 Completed US gall bladder [id number] Stat Ultrasound 03/24/22 05:30 Completed Pending at discharge Category Date Time Status BMP [Basic Metabolic Panel] Routine Lab 03/25/22 16:00 Ordered Blood Culture Stat Lab 03/24/22 10:12 Results Radiology Impressions KUB X-Ray 03/24/22 04:02 IMPRESSION: Nonspecific bowel gas pattern, as noted above. Abdomen/Pelvis CT 03/24/22 04:32 IMPRESSION: 1. Fluid in the ascending and transverse colon. Moderately fluid distended cecum with maximal diameter of 6.9 cm. Moderate gas and fecal material seen in the descending colon, sigmoid colon and rectum. These are nonspecific findings that can be seen with enteritis. Some sigmoid colonic diverticula seen, without CT evidence of diverticulitis. 2. Moderately distended gallbladder with gallstones. Sonography may be performed for complete assessment. 3. Small to medium-sized hiatal hernia. 4. Other chronic changes, as noted above. Gallbladder Ultrasound 03/24/22 05:30 IMPRESSION: 1. [id number]-[id number]-brwqytcfie distended gallbladder with mild gallbladder sludge along with some dependent gallstones. Mild gallbladder wall thickening. No pericholecystic fluid. No sonographic Hardy sign demonstrated. Hepatobiliary scan may be performed, if there is further clinical concern. 2. No biliary ductal dilatation seen. Laboratory Results WBC 11.4 10^3/uL (4.0-10.0) H 03/25/22 04:08 RBC 3.22 10^6/uL (4.1-5.3) L 03/25/22 04:08 Hgb 10.6 g/dL (11.7-16.6) L 03/25/22 04:08 Hct 29.6 % (42.0-52.0) L 03/25/22 04:08 MCV 91.9 fl (80-94) 03/25/22 04:08 MCH 32.9 pg (28.0-34.0) 03/25/22 04:08 MCHC 35.8 g/dL (30.0-36.0) 03/25/22 04:08 RDW 13.5 % (12.1-15.1) 03/25/22 04:08 Plt Count 175 10^3/cmm (130-400) 03/25/22 04:08 MPV 10.4 fL (7.4-10.4) 03/25/22 04:08 Neut % (Auto) 75.6 % 03/25/22 04:08 Lymph % (Auto) 14.9 % 03/25/22 04:08 [place] % (Auto) 7.4 % 03/25/22 04:08 Eos % (Auto) 1.1 % 03/25/22 04:08 Baso % (Auto) 0.4 % 03/25/22 04:08 Neut # (Auto) 8.60 10^3/uL (1.8-7.7) H 03/25/22 04:08 Lymph # (Auto) 1.7 10^3/uL (0.8-4.8) 03/25/22 04:08 [place] # (Auto) 0.8 10^3/uL (0.2-0.9) 03/25/22 04:08 Eos # (Auto) 0.1 10^3/uL (0.0-0.8) 03/25/22 04:08 Baso # (Auto) 0.0 10^3/uL (0.0-0.1) 03/25/22 04:08 Nucleated RBC % (auto) 0 % 03/25/22 04:08 Nucleated RBCs # 0.0 /100WBC 03/25/22 04:08 Sodium 139 mmol/L (136-145) 03/25/22 04:08 Potassium 3.4 mmol/L (3.5-5.1) L 03/25/22 04:08 Chloride 107 mmol/L (98-107) 03/25/22 04:08 Carbon Dioxide 22 mmol/L (22-29) 03/25/22 04:08 Anion Gap 13.4 (5-19) 03/25/22 04:08 BUN 35 mg/dL (8-23) H 03/25/22 04:08 Creatinine 1.9 mg/dL (0.7-1.2) H 03/25/22 04:08 GFR Calculation Not Reportable 03/25/22 04:08 Glucose 119 mg/dL (65-115) H 03/25/22 04:08 POC Glucose 163 mg/dL (70-110) H 03/25/22 10:48 Calculated Osmolality 297 mOsm/kg (285-295) H 03/25/22 04:08 Lactic Acid 1.9 mmol/L (0.5-2.2) 03/24/22 08:40 Lactate 2.3 mmol/L (0.5-2.2) H 03/24/22 04:39 Calcium 8.1 mg/dL (8.5-10.5) L 03/25/22 04:08 Total Bilirubin 0.4 mg/dL (0.15-1.2) 03/25/22 04:08 AST 23 U/L (0-40) 03/25/22 04:08 ALT 20 U/L (0-41) 03/25/22 04:08 Alkaline Phosphatase 69 U/L (40-130) 03/25/22 04:08 Creatine Kinase 230 U/L (39-308) 03/24/22 09:15 Total Protein 5.7 g/dL (6.6-8.7) L D 03/25/22 04:08 Albumin 3.2 g/dL (3.5-5.2) L 03/25/22 04:08 Globulin 2.5 g/dL (1.3-4.6) 03/25/22 04:08 Lipase 64 U/L (13-60) H 03/24/22 04:13 TSH 0.97 uIU/mL (0.27-4.20) 03/24/22 09:15 Urine Color Yellow (Yellow) 03/24/22 06:42 Urine Appearance Clear (CLEAR) 03/24/22 06:42 Urine pH 5 (5-7) 03/24/22 06:42 Ur Specific [place] 1.020 (1.005-1.030) 03/24/22 06:42 Urine Protein Neg (Negative) 03/24/22 06:42 Urine Glucose (UA) Trace (Normal) H 03/24/22 06:42 Urine Ketones Negative (Negative) 03/24/22 06:42 Urine Blood Neg (Negative) 03/24/22 06:42 Urine Nitrate Negative (Negative) 03/24/22 06:42 Urine Bilirubin Neg (Negative) 03/24/22 06:42 Urine Urobilinogen Norm mg/dL (Negative) 03/24/22 06:42 Ur Leukocyte Esterase Negative (Negative) 03/24/22 06:42 Vitals Last Vital Signs Temp 97.8 F 03/25/22 08:00 Pulse 77 03/25/22 11:52 Resp 16 03/25/22 11:52 BP 165/70 03/25/22 11:52 Pulse Ox 92 03/25/22 11:52 O2 Del Method 03/25/22 11:52 Discharge Plan Discharge Patient Disposition: Home Condition: Stable Prescriptions: New Cipro 500 mg tablet 500 mg PO BID 7 Days Qty: 14 0RF metronidazole 500 mg tablet 500 mg PO BID 7 Days Qty: 14 0RF Continued atorvastatin 40 mg tablet 40 mg PO BEDTIME promethazine-DM 6.25-15 mg/5 mL syrup 10 ml PO Q6H PRN (Reason: Cough) Lantus U-100 Insulin 100 unit/mL solution 40 unit SUBCUT DAILY metoprolol succinate 50 mg tablet extended release 24 hr 75 mg PO DAILY clonidine HCl 0.2 mg tablet 0.2 mg PO BID tamsulosin 0.4 mg capsule 0.4 mg PO BID amlodipine 10 mg tablet 10 mg PO DAILY trazodone 150 mg tablet 225 mg PO BEDTIME PRN (Reason: Sleep) glimepiride 4 mg tablet 4 mg PO DAILY omeprazole 20 mg capsule,delayed release(DR/EC) 20 mg PO DAILY hydrochlorothiazide 25 mg tablet 25 mg PO DAILY albuterol sulfate 90 mcg/actuation HFA aerosol inhaler 2 puff INHALATION Q4H PRN (Reason: Shortness Of Breath Or Wheezing) ondansetron 4 mg tablet,disintegrating 4 mg PO TID PRN (Reason: Nausea And Vomiting) finasteride 5 mg tablet 5 mg PO DAILY cholestyramine (with sugar) 4 gram powder in packet 1 ea PO DAILY Niva-Fol 2.5-25-2 mg tablet 1 tab PO DAILY aspirin 81 mg Tablet,Delayed Release (Dr/Ec) 81 mg PO DAILY Tylenol 325 mg Capsule 650 mg PO BID Men's 50 Plus Multivitamin 400-20-370 mcg Tablet 1 tab PO DAILY My Sleep 1 tab PO BEDTIME Held diphenoxylate-atropine 2.5-0.025 mg tablet 1 tab PO QID PRN (Reason: Diarrhea) Hold Instructions: see pcp lisinopril 40 mg tablet 40 mg PO DAILY Hold Instructions: Hold till seen by PCP Discharge Orders: Discharge Order (Routine); Ordered 03/25/22 Ordered By: Tila Feliciano Other Ambulatory Orders: Basic Metabolic Panel (Routine) Timeframe: 3 Days Facility: [facility] - Location: Lab - Main Lab Ordered By: Tila Feliciano Referrals: Autumn Mortensen MD [Primary Care Provider] - 4-7 days Jose Garcia MD [Physician] - 2 weeks Discharge Diet: Advance as tolerated Discharge Activity: Resume usual activity Patient Instructions: Constipation - Adult, Ciprofloxacin (By mouth), Metronidazole (By mouth), Acute Kidney Injury (DC), Enteritis (DC), Opioid Safety Activity Restrictions/Additional Instructions: Please return to ER if you have worsening of symptoms or symptoms develop. Please monitor your BP at home and take values noted twice a day to your primary care doctor at follow up. Due to your kidney injury, I have held your lisinopril. Please hold for few days. Repeat lab work and follow up with PCP for resuming the medication. Discharge Attestations Time Spent in Discharge Care*: less than 30 min Quality Metrics Clinical Quality Measures [ No reported AMI, CVA or VTE this stay] Coding Level of Care Code Acute Chg FW DC note Diagnoses Gallbladder sludge K82.8
[2022-03-25 16:04] LABS: Blood Urea Nitrogen 28 mg/dL (8-23); Calcium 8.1 mg/dL (8.5-10.5); Carbon Dioxide 22 mmol/L (22-29); Chloride 106 mmol/L (98-107); Glucose 200 mg/dL (65-115); Osmolality Calculated 297 mOsm/kg (285-295); Sodium 138 mmol/L (136-145)
--- NOTE | 2022-03-25 16:47 | PC.NURSE ---
Discharge Note Patient discharged to home via private vehicle accompanied by daughter. Discharge instructions reviewed with patient and/or dental sales representative. Mobile pharmacy medications and/or prescriptions provided. Belongings/home medications returned.
== END 2022-03-25 16:47 | disposition home or self-care (01) ==
LOC: ER 09:18 → MEDSURG 09:38
PROVIDERS: Emergency Medicine; Admitting Provider Internal Medicine; Emergency Provider Family Medicine; PCP Family Medicine; Visit Provider Internal Medicine
DX: K82.8 Other specified diseases of gallbladder (principal); N40.0 Benign prostatic hyperplasia without lower urinary tract symptoms; E11.22 Type 2 diabetes mellitus with diabetic chronic kidney disease; I12.9 Hypertensive chronic kidney disease with stage 1 through stage 4 chronic kidney disease, or unspecified chronic kidney disease; N18.9 Chronic kidney disease, unspecified; K21.9 Gastro-esophageal reflux disease without esophagitis; E78.5 Hyperlipidemia, unspecified; Z87.891 Personal history of nicotine dependence; Z79.82 Long term (current) use of aspirin; Z79.4 Long term (current) use of insulin
CPT/HCPCS: 36415; 36416; 51798; 74018; 74176; 76705; 80048; 80053; 81003; 82550; 82962; 83605; 83690; 84443; 85025; 87040; 87493; 87506; 96365; 96366; 96372; 96375; 99285; G0378; J1644; J1815; J2405; J2543; J7030

== ENCOUNTER → 2022-05-24 14:30 | Outpatient (BNVA) | payer MEDICARE, BC, SELFPAY | PROVIDERS: PCP Family Medicine; Visit Provider Internal Medicine Cardiovascular Disease | DX: I25.10 Atherosclerotic heart disease of native coronary artery without angina pectoris (principal); E11.42 Type 2 diabetes mellitus with diabetic polyneuropathy; Z79.4 Long term (current) use of insulin; E78.5 Hyperlipidemia, unspecified; I12.9 Hypertensive chronic kidney disease with stage 1 through stage 4 chronic kidney disease, or unspecified chronic kidney disease; N18.9 Chronic kidney disease, unspecified; Z87.891 Personal history of nicotine dependence; I44.0 Atrioventricular block, first degree; I44.4 Left anterior fascicular block; R94.31 Abnormal electrocardiogram [ECG] [EKG] | CPT/HCPCS: 93005; 99204 ==

== ENCOUNTER → 2023-05-16 12:37 | Outpatient (BNVA) | payer MEDICARE, SELFPAY | PROVIDERS: PCP Family Medicine; Visit Provider Internal Medicine Cardiovascular Disease | DX: R07.9 Chest pain, unspecified (principal); I44.4 Left anterior fascicular block; I25.10 Atherosclerotic heart disease of native coronary artery without angina pectoris; E78.5 Hyperlipidemia, unspecified; E11.42 Type 2 diabetes mellitus with diabetic polyneuropathy; I12.9 Hypertensive chronic kidney disease with stage 1 through stage 4 chronic kidney disease, or unspecified chronic kidney disease; N18.31 Chronic kidney disease, stage 3a; Z87.891 Personal history of nicotine dependence; E11.22 Type 2 diabetes mellitus with diabetic chronic kidney disease; I27.20 Pulmonary hypertension, unspecified; I44.0 Atrioventricular block, first degree | CPT/HCPCS: 93005; 99214 ==

== ENCOUNTER → 2023-09-13 14:00 | Outpatient (BNVA) | payer MEDICARE, SELFPAY | PROVIDERS: PCP Family Medicine; Visit Provider Podiatrist Foot & Ankle Surgery | DX: L60.3 Nail dystrophy (principal); E11.42 Type 2 diabetes mellitus with diabetic polyneuropathy; N18.31 Chronic kidney disease, stage 3a; Z79.4 Long term (current) use of insulin | CPT/HCPCS: 11721; 99203 ==

== ENCOUNTER → 2023-11-21 12:43 | Outpatient (BNVA) | payer MEDICARE, SELFPAY | PROVIDERS: PCP Family Medicine; Visit Provider Podiatrist Foot & Ankle Surgery | DX: L60.3 Nail dystrophy (principal); E11.42 Type 2 diabetes mellitus with diabetic polyneuropathy; N18.31 Chronic kidney disease, stage 3a; Z79.4 Long term (current) use of insulin | CPT/HCPCS: 11721 ==

== ENCOUNTER → 2024-01-22 12:47 | Outpatient (BNVA) | payer MEDICARE, SELFPAY | PROVIDERS: PCP Family Medicine; Visit Provider Podiatrist Foot & Ankle Surgery | DX: L60.3 Nail dystrophy (principal); E11.42 Type 2 diabetes mellitus with diabetic polyneuropathy; N18.31 Chronic kidney disease, stage 3a; Z79.4 Long term (current) use of insulin | CPT/HCPCS: 11721 ==

== ENCOUNTER → 2024-03-25 12:43 | Outpatient (BNVA) | payer MEDICARE, SELFPAY | PROVIDERS: PCP Family Medicine; Visit Provider Podiatrist Foot & Ankle Surgery | DX: L60.3 Nail dystrophy (principal); E11.42 Type 2 diabetes mellitus with diabetic polyneuropathy; N18.31 Chronic kidney disease, stage 3a; Z79.4 Long term (current) use of insulin | CPT/HCPCS: 11721 ==

== ENCOUNTER → 2024-05-13 10:45 | Outpatient (BNVA) | payer MEDICARE, SELFPAY | PROVIDERS: PCP Family Medicine; Visit Provider Internal Medicine Cardiovascular Disease | DX: I25.10 Atherosclerotic heart disease of native coronary artery without angina pectoris (principal); E78.5 Hyperlipidemia, unspecified; I12.9 Hypertensive chronic kidney disease with stage 1 through stage 4 chronic kidney disease, or unspecified chronic kidney disease; N18.31 Chronic kidney disease, stage 3a; Z87.891 Personal history of nicotine dependence | CPT/HCPCS: 99214 ==

== ENCOUNTER → 2024-06-04 13:49 | Outpatient (BNVA) | payer MEDICARE, SELFPAY | PROVIDERS: PCP Family Medicine; Visit Provider Podiatrist Foot & Ankle Surgery | DX: L60.3 Nail dystrophy (principal); E11.42 Type 2 diabetes mellitus with diabetic polyneuropathy; N18.31 Chronic kidney disease, stage 3a; Z79.4 Long term (current) use of insulin | CPT/HCPCS: 11721 ==

== ENCOUNTER → 2024-08-06 13:06 | Outpatient (BNVA) | payer MEDICARE, SELFPAY | PROVIDERS: PCP Family Medicine; Visit Provider Podiatrist Foot & Ankle Surgery | DX: E11.42 Type 2 diabetes mellitus with diabetic polyneuropathy (principal); L60.3 Nail dystrophy; N18.31 Chronic kidney disease, stage 3a; Z79.4 Long term (current) use of insulin | CPT/HCPCS: 11721 ==

== ENCOUNTER → 2024-10-09 07:13 | Outpatient (BNVA) | payer MEDICARE, SELFPAY | PROVIDERS: PCP Family Medicine; Visit Provider Podiatrist Foot & Ankle Surgery | DX: E11.42 Type 2 diabetes mellitus with diabetic polyneuropathy (principal); L60.3 Nail dystrophy; N18.31 Chronic kidney disease, stage 3a; E11.29 Type 2 diabetes mellitus with other diabetic kidney complication; Z79.4 Long term (current) use of insulin | CPT/HCPCS: 11721 ==

== ENCOUNTER → 2024-11-14 10:16 | Outpatient (BNVA) | payer MEDICARE, SELFPAY | PROVIDERS: PCP Family Medicine; Visit Provider Nurse Practitioner Family | DX: I25.10 Atherosclerotic heart disease of native coronary artery without angina pectoris (principal); E78.5 Hyperlipidemia, unspecified; I10 Essential (primary) hypertension; Z79.82 Long term (current) use of aspirin; Z95.1 Presence of aortocoronary bypass graft | CPT/HCPCS: 99214 ==

== ENCOUNTER → 2024-12-17 13:00 | Outpatient (BNVA) | payer MEDICARE, SELFPAY | PROVIDERS: PCP Family Medicine; Visit Provider Podiatrist Foot & Ankle Surgery | DX: E11.42 Type 2 diabetes mellitus with diabetic polyneuropathy (principal); L60.3 Nail dystrophy; N18.31 Chronic kidney disease, stage 3a; Z79.4 Long term (current) use of insulin | CPT/HCPCS: 11721; 99213 ==

== ENCOUNTER → 2025-02-26 13:16 | Outpatient (BNVA) | payer MEDICARE, SELFPAY | PROVIDERS: PCP Family Medicine; Visit Provider Podiatrist Foot & Ankle Surgery | DX: E11.42 Type 2 diabetes mellitus with diabetic polyneuropathy (principal); L60.3 Nail dystrophy; N18.31 Chronic kidney disease, stage 3a; Z79.4 Long term (current) use of insulin | CPT/HCPCS: 11721 ==

== ENCOUNTER → 2025-05-06 13:25 | Outpatient (BNVA) | payer MEDICARE, SELFPAY | PROVIDERS: PCP Family Medicine; Referring Provider Family Medicine; Visit Provider Specialist | DX: R20.0 Anesthesia of skin (principal); R20.2 Paresthesia of skin | CPT/HCPCS: 95909 ==